=== PATIENT | male | born 1945 | race Hispanic/Latino ===

== ENCOUNTER 2017-06-03 16:36 | Inpatient (IN) | payer MEDICARE, BC ==
[2017-06-03 16:37] VITALS: BMI 26.4
--- NOTE | 2017-06-03 17:49 | C.PDOC ---
History Of Present Illness 72-year-old male presents to the ED for evaluation of right shoulder pain which began after he sustained a fall [employer]. Patient states he accidentally tripped over his foot and fell onto his right side. Patient notes he hit the right side of his head on the floor, but denies LOC. The fall was witnessed by his , who is present at bedside. Patient also denies symptoms prior to fall such as chest pain, palpitations, SOB, headache, dizziness, sensory changes, extremity weakness. Time Seen by Provider: 06/03/17 17:05 Chief Complaint (Nursing): Upper Extremity Problem/Injury History Per: Patient, Family History/Exam Limitations: no limitations Onset/Duration Of Symptoms: Hrs Current Symptoms Are (Timing): Better Quality: "Pain" Severity: Mild Additional History Per: Patient Past Medical History Reviewed: Historical Data, Nursing Documentation, Vital Signs Vital Signs: Last Vital Signs Temp 98.5 F 06/09/17 07:00 Pulse 76 06/09/17 07:00 Resp 18 06/09/17 07:00 BP 146/80 06/09/17 07:00 Pulse Ox 95 06/09/17 07:00 - Medical History PMH: Alzheimer's Disease, Anemia, COPD, Dementia, Fractures (ribs) Surgical History: Appendectomy - [facility] Procedures INJECT/INFUSE NEC (04/24/14) Family History: States: No Known Family Hx - Social History Hx Alcohol Use: No Hx Substance Use: No Review Of Systems Except As Marked, All Systems Reviewed And Found Negative. Cardiovascular: Negative for: Chest Pain, Palpitations Respiratory: Negative for: Shortness of Breath Gastrointestinal: Negative for: Nausea, Vomiting, Abdominal Pain, Diarrhea Musculoskeletal: Positive for: Shoulder Pain (right ) Neurological: Positive for: Other (+head injury, no LOC ). Negative for: Weakness, Numbness, Confusion, Seizures, Dizziness Physical Exam - Physical Exam Appears: Well, Non-toxic, No Acute Distress Skin: Normal Color, Warm, Dry Head: Normacephalic, Other (erythematous mild wound/abrasion to right temporal area) Eye(s): bilateral: Normal Inspection Oral Mucosa: Moist Neck: Normal, Normal ROM, No Midline Cervical Tenderness, No Paracervical Tenderness, No Step Off Deformity, Supple Cardiovascular: Rhythm Regular Respiratory: Normal Breath Sounds, No Rales, No Rhonchi, No Wheezing Gastrointestinal/Abdominal: Normal Exam, Bowel Sounds, Soft, No Tenderness, No Guarding, No Rebound Extremity: Normal ROM, Capillary Refill (< 2sec all digits ), No Deformity, Swelling (moderate swelling at right proximal humerus, (+) diffuse TTP) Extremity: Bilateral: Normal Color And Temperature Pulses: Left Radial: Normal, Right Radial: Normal Neurological/Psych: Oriented x3, Normal Speech, Normal Cognition, Normal Cranial Nerves, No Cerebellar Signs, Normal Motor, Normal Sensation Gait: Steady ED Course And Treatment - Laboratory Results Result Diagrams: 06/07/17 07:58 06/07/17 07:58 ECG: Interpreted By Me, Viewed By Me (sinus rhtyhm 83 bpm, 1st degree AV block, normal axis, no acute ST/T wave changes) ECG Interpretation: Abnormal O2 Sat by Pulse Oximetry: 96 (on RA) Pulse Ox Interpretation: Normal - Other Rad RIGHT SHOULDER XRAY X-Ray: Interpreted by Me, Viewed By Me (proximal humerus fx at surgical neck, no dislocation) - CT Scan/US CT HEAD Other Rad Studies (CT/US): Read By Radiologist, Radiology Report Reviewed CT/US Interpretation: Accession No. : [id number]. Patient Name / ID : ALEX Ramon / [id number]. Exam Date : 06/03/2017 17:41:07 ( Approved ). Study Comment : Sex / Age : M / 72Y. Creator : Kate Ruiz. Dictator : Leslie Saldivar MD. Medical Front Desk Coordinator : Card Table Attendant : Leslie Saldivar MD. Approver2 : Report Date : 06/03/2017 17:48:58. My Comment : . PROCEDURE: CT HEAD WITHOUT CONTRAST. HISTORY: head injury r/o bleed. COMPARISON: None available. TECHNIQUE: Axial computed tomography images were obtained through the head/brain without intravenous contrast. Radiation dose: Total exam DLP = 992.81 mGy-cm. This CT exam was performed using one or more of the following dose reduction techniques: Automated exposure control, adjustment of the mA and/or kV according to patient size, and/or use of iterative reconstruction technique. FINDINGS: HEMORRHAGE: No intracranial hemorrhage. BRAIN: Diffuse atrophy with prominence of the ventricles and sulci noted. No mass effect or edema. Patchy hypodense region in the left temporal lobe may reflect ischemic change. Scattered periventricular and subcortical white matter hypodensities, which are nonspecific, but often seen with chronic microvascular ischemic disease. VENTRICLES: No hydrocephalus. CALVARIUM: Unremarkable. PARANASAL SINUSES: Unremarkable as visualized. No significant inflammatory changes. MASTOID AIR CELLS: Unremarkable as visualized. No inflammatory changes. OTHER FINDINGS: None. IMPRESSION: Generalized atrophy. Patchy hypodense region in the left temporal lobe may reflect ischemic change. Scattered periventricular and subcortical white matter hypodensities, which are nonspecific, but often seen with chronic microvascular ischemic disease. Please note that MRI with diffusion imaging is more sensitive in the detection of acute ischemic event. Progress Note: Xray of right shoulder and CT head ordered and reviewed. Patient given PO Tylenol. As per , patient has h/o Lewy body dementia that is worsening by IV narcotics such as morphine. PO tylenol #3 given instead for pain, is comfortable with that plan. requests ortho consult Dr. Koch. - Physician Consult Information Physician Contacted: Dexter Carter Outcome Of Conversation: Discussed patient with Dr. Lurdes Carter, agrees with admission to his service with Dr. Koch for orthopedics. Disposition - Disposition Disposition: HOSPITALIZED Disposition Time: 18:50 Condition: STABLE - Clinical Impression Clinical Impression: Closed fracture of right proximal humerus - Scribe Statement The provider has reviewed the documentation as recorded by the Scribe (Dorie Carter) Provider Attestation: All medical record entries made by the Scribe were at my direction and personally dictated by me. I have reviewed the chart and agree that the record accurately reflects my personal performance of the history, physical exam, medical decision making, and the department course for this patient. I have also personally directed, reviewed, and agree with the discharge instructions and disposition.
--- NOTE | 2017-06-03 18:05 | CT ---
PROCEDURE: CT HEAD WITHOUT CONTRAST. HISTORY: head injury r/o bleed COMPARISON: None available. TECHNIQUE: Axial computed tomography images were obtained through the head/brain without intravenous contrast. Radiation dose: Total exam DLP = 992.81 mGy-cm. This CT exam was performed using one or more of the following dose reduction techniques: Automated exposure control, adjustment of the mA and/or kV according to patient size, and/or use of iterative reconstruction technique. FINDINGS: HEMORRHAGE: No intracranial hemorrhage. BRAIN: Diffuse atrophy with prominence of the ventricles and sulci noted. No mass effect or edema. Patchy hypodense region in the left temporal lobe may reflect ischemic change. Scattered periventricular and subcortical white matter hypodensities, which are nonspecific, but often seen with chronic microvascular ischemic disease. VENTRICLES: No hydrocephalus. CALVARIUM: Unremarkable. PARANASAL SINUSES: Unremarkable as visualized. No significant inflammatory changes. MASTOID AIR CELLS: Unremarkable as visualized. No inflammatory changes. OTHER FINDINGS: None. IMPRESSION: Generalized atrophy. Patchy hypodense region in the left temporal lobe may reflect ischemic change. Scattered periventricular and subcortical white matter hypodensities, which are nonspecific, but often seen with chronic microvascular ischemic disease. Please note that MRI with diffusion imaging is more sensitive in the detection of acute ischemic event.
[2017-06-03] MEDS ORDERED: Acetaminophen-Codeine 300/30 mg Tab PO STA (18:51)
[2017-06-03] MEDS ORDERED: Acetaminophen-Codeine 300/30 mg Tab PO ONE (19:03)
[2017-06-03 19:49] LABS: BASO % 0.3 % (0.0-2.0); EOS % 0.4 % (0.0-4.0); HEMOGLOBIN 13.9 g/dL (12.0-18.0); LYMPH # 0.9 K/uL (1.0-4.3); LYMPH % 10.2 % (20.0-40.0); MEAN CELL VOLUME 91.1 fL (80.0-94.0); MEAN CORPUSCULAR HEMOGLOBIN 31.9 pg (27.0-31.0); MEAN PLATELET VOLUME 9.6 fL (7.2-11.7); MONO # 0.8 K/uL (0.0-0.8); MONO % 8.4 % (0.0-10.0); NEUT # 7.4 K/uL (1.8-7.0); NEUT % 80.7 % (50.0-75.0); RBC 4.36 Mil/uL (4.40-5.90); RED CELL DISTRIBUTION WIDTH 12.4 % (11.5-14.5); WHITE BLOOD COUNT 9.2 K/uL (4.8-10.8)
[2017-06-03 19:58] LABS: INR 1.1
[2017-06-03 20:04] LABS: ALB/GLOB RATIO 1.3 (1.0-2.1); ALBUMIN 3.9 g/dL (3.5-5.0); ALT/SGPT 28 U/L (21-72); AST/SGOT 36 U/L (17-59); BLOOD UREA NITROGEN 25 mg/dL (9-20); CALCIUM 8.8 mg/dl (8.6-10.4); GFR AFRICAN-AMERICAN > 60; GFR NON-AFRICAN AMERICAN > 60
--- NOTE | 2017-06-03 22:35 | CP.PCM.HP ---
Present on Admission - Present on Admission Any Indicators Present on Admission: No Past Patient History - Infectious Disease Hx of Infectious Diseases: None - Tetanus Immunizations Tetanus Immunization: Unknown - Past Medical History & Family History Past Medical History?: Yes - Past Social History Smoking Status: Former Smoker - CARDIAC Hx Hypotension: Yes (orthostatic) - PULMONARY Hx Chronic Obstructive Pulmonary Disease (COPD): Yes - NEUROLOGICAL Hx Alzheimer's Disease: Yes Hx Dementia: Yes - HEENT Hx Cataracts: Yes - RENAL Hx Chronic Kidney Disease: No - ENDOCRINE/METABOLIC Hx Endocrine Disorders: No - HEMATOLOGICAL/ONCOLOGICAL Hx Anemia: Yes - INTEGUMENTARY Hx Dermatological Problems: No - MUSCULOSKELETAL/RHEUMATOLOGICAL Hx Fractures: Yes (ribs) - GASTROINTESTINAL Hx Gastrointestinal Disorders: No - GENITOURINARY/GYNECOLOGICAL Hx Prostate Problems: Yes Hx Urinary Tract Infection: Yes Other/Comment: frequent urine infections - PSYCHIATRIC Hx Substance Use: No - SURGICAL HISTORY Hx Appendectomy: Yes - ANESTHESIA Hx Anesthesia: Yes Hx Anesthesia Reactions: No Meds Allergies/Adverse Reactions: Allergies Allergy/AdvReac Type Severity Reaction Status Date / Time morphine Allergy ANAPHYLAXIS Verified 06/03/17 16:58 Results - Vital Signs Recent Vital Signs: Last Vital Signs Temp 98.3 F 06/03/17 16:53 Pulse 83 06/03/17 17:09 Resp 18 06/03/17 17:09 BP 200/95 H 06/03/17 17:09 Pulse Ox 96 06/03/17 19:13 - Labs Result Diagrams: 06/03/17 19:46 06/03/17 19:46 Labs: Laboratory Results - last 24 hr 06/03/17 06/03/17 06/03/17 19:46 19:46 19:46 WBC 9.2 RBC 4.36 L Hgb 13.9 Hct 39.7 MCV 91.1 MCH 31.9 H MCHC 35.0 RDW 12.4 Plt Count 161 MPV 9.6 Neut % (Auto) 80.7 H Lymph % (Auto) 10.2 L [place] % (Auto) 8.4 Eos % (Auto) 0.4 Baso % (Auto) 0.3 Neut # (Auto) 7.4 H Lymph # (Auto) 0.9 L [place] # (Auto) 0.8 Eos # (Auto) 0.0 Baso # (Auto) 0.0 PT 12.0 INR 1.1 APTT 34 Sodium 142 Potassium 4.3 Chloride 103 Carbon Dioxide 30 Anion Gap 13 BUN 25 H Creatinine 0.9 Est GFR ( Amer) > 60 Est GFR (Non-Af Amer) > 60 Random Glucose 145 H Calcium 8.8 Total Bilirubin 0.7 AST 36 ALT 28 Alkaline Phosphatase 53 Total Protein 6.9 Albumin 3.9 Globulin 3.0 Albumin/Globulin Ratio 1.3 Blood Type Antibody Screen 06/03/17 19:46 WBC RBC Hgb Hct MCV MCH MCHC RDW Plt Count MPV Neut % (Auto) Lymph % (Auto) [place] % (Auto) Eos % (Auto) Baso % (Auto) Neut # (Auto) Lymph # (Auto) [place] # (Auto) Eos # (Auto) Baso # (Auto) PT INR APTT Sodium Potassium Chloride Carbon Dioxide Anion Gap BUN Creatinine Est GFR ( Amer) Est GFR (Non-Af Amer) Random Glucose Calcium Total Bilirubin AST ALT Alkaline Phosphatase Total Protein Albumin Globulin Albumin/Globulin Ratio Blood Type A POSITIVE Antibody Screen Negative Assessment & Plan - Assessment and Plan (Free Text) Plan: orthofollwup nemaned protonix jayleen lvoenox scd other mx as ordered will monitor cbc closelyh may need rehab
--- NOTE | 2017-06-03 23:02 | CT ---
EXAM: CT Right Upper Extremity Without Intravenous Contrast, Shoulder CLINICAL HISTORY: 72 years old, male; Injury or trauma; Fall; Initial encounter; Fracture, traumatic injury; Closed fracture; Humerus; Right; Additional info: Rt shoulder pain TECHNIQUE: Axial computed tomography images of the right shoulder without intravenous contrast. All CT scans at this facility use one or more dose reduction techniques, viz.: automated exposure control; ma/kV adjustment per patient size (including targeted exams where dose is matched to indication; i.e. head); or iterative reconstruction technique. Coronal and sagittal reformatted images were created and reviewed. COMPARISON: No relevant prior studies available. FINDINGS: Bones/joints: Comminuted, displaced, impacted fracture surgical neck of humerus. Severe degenerative changes of glenohumeral joint. Mild degenerative changes of acromioclavicular joint. Degenerative changes of cervical spine. No dislocation. Glenohumeral joint effusion with few foci of air. Soft tissues: Soft tissue swelling/stranding about shoulder girdle. Lungs: Few pulmonary nodules, up to 0.5 cm. IMPRESSION: 1. Right proximal humerus fracture. 2. Pulmonary nodules. For low-risk patients, no follow-up is necessary. For high-risk patients (smoking history or other known risk factors) an optional CT at 12 months could be performed. 3. Incidental/non-acute findings are described above.
--- NOTE | 2017-06-04 07:03 | RAD ---
PROCEDURE: Radiographs of the Right Shoulder HISTORY: s/p fall r/o fx COMPARISON: No prior. FINDINGS: BONES: There is a transverse, impacted fracture through the surgical neck of the proximal right humerus without dislocation. Fracture appears impacted without malalignment. Prominent acromioclavicular and glenohumeral joint degenerative changes are appreciated. JOINTS: As above. SOFT TISSUES: Normal. OTHER FINDINGS: None. IMPRESSION: Proximal right humeral fracture without dislocation. Mild impaction noted at fracture site.
--- NOTE | 2017-06-04 07:13 | RAD ---
PROCEDURE: CHEST RADIOGRAPH, 1 VIEW HISTORY: admission COMPARISON: None available. FINDINGS: LUNGS: Clear. PLEURA: No pneumothorax or pleural fluid seen. CARDIOVASCULAR: Normal. OSSEOUS STRUCTURES: No significant abnormalities. VISUALIZED UPPER ABDOMEN: Normal. OTHER FINDINGS: None. IMPRESSION: No acute cardiopulmonary disease appreciated.
[2017-06-04] MEDS ORDERED: HYDROmorphone 0.5 mg/0.5 ml ISec IVP PRN (07:27)
--- NOTE | 2017-06-04 07:53 | CARD ---
APPROVED REPORT EKG Measurement Heart [id number] <Conclusion> Sinus rhythm with 1st degree AV block Otherwise normal ECG
[2017-06-04] MEDS ORDERED: HYDROmorphone 0.5 mg/0.5 ml ISec ONE (08:01)
--- NOTE | 2017-06-04 08:19 | CP.PCM.PN ---
Subjective - Date & Time of Evaluation Date of Evaluation: 06/04/17 Time of Evaluation: 08:16 - Subjective Subjective: Orthopedic eval Dr. Koch, full consultation to follow 72M complains of right shoulder pain after fall last night. At this time, patient is confused, and requires prompting but does follow commands. He denies any numbness or tingling. He denies pain in other extremities, denies headache, neck pain, or back pain. Objective - Vital Signs/Intake and Output Vital Signs (last 24 hours): Temp Pulse Resp BP Pulse Ox 98.7 F 100 H 19 151/86 H 95 06/04/17 05:54 06/04/17 07:55 06/04/17 07:55 06/04/17 07:55 06/04/17 07:55 - Medications Medications: Current Medications Citalopram Hydrobromide (Celexa) 1 mg PO DAILY [facility] Donepezil HCl (Aricept) 1 mg PO DAILY [facility] Finasteride (Proscar) 5 mg PO DAILY [facility] Fludrocortisone Acetate (Florinef) 1 mg PO DAILY [facility] Home Med (Midodrine [Proamatine]) 1 tab PO TID [facility] Home Med (Mirabegron [Myrbetriq]) 50 mg PO DAILY [facility] Home Med (Pyridostigmine [Mestinon]) 1 tab PO TID [facility] Home Med (Solifenacin Succinate [Vesicare]) 1 tab PO DAILY [facility] Hydromorphone HCl (Dilaudid) 0.5 mg IVP Q8H PRN PRN Reason: Pain, moderate (4-7) Last Admin: 06/04/17 08:00 Dose: 0.5 mg Memantine (Namenda) 10 mg PO BID [facility] Pantoprazole Sodium (Protonix Ec Tab) 40 mg PO DAILY [facility] - Labs Labs: 06/03/17 19:46 06/03/17 19:46 PT 12.0 SECONDS (9.7-12.2) 06/03/17 19:46 INR 1.1 06/03/17 19:46 APTT 34 SECONDS (21-34) 06/03/17 19:46 - Constitutional Appears: Well, No Acute Distress - Neck Exam Neck Exam: Full ROM, Normal Inspection - Extremities Exam Additional comments: Right shoulder: noted swelling to right shoulder, skin intact, TTP to shoulder, +radial pulse, sensation intact to RUE, +ROM fingers, +thumb ext, finger add/abd , extension, flexion No swelling or tenderness to right elbow/forearm/wrist BLE/LUE +radial pulse, no swelling/deformity discoloration - Neurological Exam Neurological Exam: Alert, Awake - Skin Skin Exam: Dry, Normal Color, Warm (swelling) Assessment and Plan (1) Closed fracture of right proximal humerus Assessment & Plan: Imaging reviewed by Dr. Koch fracture is non operative, continue sling, ice, pain medication diet ordered d/w Dr. Koch, agrees with above Status: Acute Results - Vital Signs Recent Vital Signs: Last Vital Signs Temp 98.7 F 06/04/17 05:54 Pulse 100 H 06/04/17 07:55 Resp 19 06/04/17 07:55 BP 151/86 H 06/04/17 07:55 Pulse Ox 95 06/04/17 07:55 - Labs Result Diagrams: 06/03/17 19:46 06/03/17 19:46 Labs: Laboratory Results - last 24 hr 06/03/17 06/03/17 06/03/17 19:46 19:46 19:46 WBC 9.2 RBC 4.36 L Hgb 13.9 Hct 39.7 MCV 91.1 MCH 31.9 H MCHC 35.0 RDW 12.4 Plt Count 161 MPV 9.6 Neut % (Auto) 80.7 H Lymph % (Auto) 10.2 L [place] % (Auto) 8.4 Eos % (Auto) 0.4 Baso % (Auto) 0.3 Neut # (Auto) 7.4 H Lymph # (Auto) 0.9 L [place] # (Auto) 0.8 Eos # (Auto) 0.0 Baso # (Auto) 0.0 PT 12.0 INR 1.1 APTT 34 Sodium 142 Potassium 4.3 Chloride 103 Carbon Dioxide 30 Anion Gap 13 BUN 25 H Creatinine 0.9 Est GFR ( Amer) > 60 Est GFR (Non-Af Amer) > 60 Random Glucose 145 H Calcium 8.8 Total Bilirubin 0.7 AST 36 ALT 28 Alkaline Phosphatase 53 Total Protein 6.9 Albumin 3.9 Globulin 3.0 Albumin/Globulin Ratio 1.3 Blood Type Antibody Screen 06/03/17 19:46 WBC RBC Hgb Hct MCV MCH MCHC RDW Plt Count MPV Neut % (Auto) Lymph % (Auto) [place] % (Auto) Eos % (Auto) Baso % (Auto) Neut # (Auto) Lymph # (Auto) [place] # (Auto) Eos # (Auto) Baso # (Auto) PT INR APTT Sodium Potassium Chloride Carbon Dioxide Anion Gap BUN Creatinine Est GFR ( Amer) Est GFR (Non-Af Amer) Random Glucose Calcium Total Bilirubin AST ALT Alkaline Phosphatase Total Protein Albumin Globulin Albumin/Globulin Ratio Blood Type A POSITIVE Antibody Screen Negative - Impressions Impression: Patient Name / ID : ALEX KWOK / [id number] Exam Date : 06/03/2017 22:31:04 ( Approved ) Study Comment : Sex / Age : M / 72Y Creator : Miguel Costello MD Dictator : Sleeve Setter Safety Stitch : Timber Appraiser : Miguel Costello MD Approver2 : Report Date : 06/03/2017 23:01:00 My Comment : [facility] Division of Radiology [address] [place] [address] Tel. no. Patient Name: RISSA JOHNSON JR Pt. Address: [address] [place] [address] Rec #: [id number] [place] [address]: Raul CHARLES, Daisy Lund Pt [place] [facility] [place] 1945 [place] Age: 72 Order #: [id number] Reason for exam: rt shoulder pain CT Scan EXT UPPER W/O CONTRAST RIGHT Exam Date: 06/03/17 This imaging exam was performed at [facility] EXAM: CT Right Upper Extremity Without Intravenous Contrast, Shoulder CLINICAL HISTORY: 72 years old, male; Injury or trauma; Fall; Initial encounter; Fracture, traumatic injury; Closed fracture; Humerus; Right; Additional info: Rt shoulder pain TECHNIQUE: Axial computed tomography images of the right shoulder without intravenous contrast. All CT scans at this facility use one or more dose reduction techniques, viz.: automated exposure control; ma/kV adjustment per patient size (including targeted exams where dose is matched to indication; i.e. head); or iterative reconstruction technique. Coronal and sagittal reformatted images were created and reviewed. COMPARISON: No relevant prior studies available. FINDINGS: Bones/joints: Comminuted, displaced, impacted fracture surgical neck of humerus. Severe degenerative changes of glenohumeral joint. Mild degenerative changes of acromioclavicular joint. Degenerative changes of cervical spine. No dislocation. Glenohumeral joint effusion with few foci of air. Soft tissues: Soft tissue swelling/stranding about shoulder girdle. Lungs: Few pulmonary nodules, up to 0.5 cm. IMPRESSION: 1. Right proximal humerus fracture. 2. Pulmonary nodules. For low-risk patients, no follow-up is necessary. For high-risk patients (smoking history or other known risk factors) an optional CT at 12 months could be performed. 3. Incidental/non-acute findings are described above. Dictated By: Miguel Costello MD Dictated Date/Time: 06/03/172300 Signed By: Miguel Costello MD Date Signed: 2300 Transcribed By: [facility] Transcribe Date/Time : 06/03/172300 [id number] Defer mgmt of nodules to medical team
[2017-06-04] MEDS ORDERED: Enoxaparin 40 mg Syringe ONE (09:40)
[2017-06-04] MEDS: Enoxaparin 40 mg Syringe SC SCH (09:43)
[2017-06-04] MEDS ORDERED: SOLIFENACIN SUCCINATE PO SCH (10:00)
[2017-06-04] MEDS: Pantoprazole 40 mg EC Tab PO SCH (10:33)
[2017-06-04] MEDS: MIDODRINE PO SCH ×2 (11:58→14:54)
[2017-06-04] MEDS: Home Med 1 UNIT (Mirabegron [Myrbetriq] 50 MG) PO SCH ×2 (11:59→14:54)
[2017-06-04] MEDS: PYRIDOSTIGMINE PO SCH ×2 (11:59→14:55)
[2017-06-04 12:25] LABS: URINE BILIRUBIN NEGATIVE (NEGATIVE); URINE BLOOD NEGATIVE (NEGATIVE); URINE CLARITY Clear (Clear); URINE COLOR Yellow (YELLOW); URINE GLUCOSE (UA) NORMAL (Normal); URINE LEUKOCYTE ESTERASE NEG Leu/uL (Negative); URINE PROTEIN NEGATIVE (NEGATIVE)
--- NOTE | 2017-06-04 17:51 | CP.PCM.PN ---
Subjective - Date & Time of Evaluation Date of Evaluation: 06/04/17 Time of Evaluation: 16:20 - Subjective Subjective: clinically same Objective - Vital Signs/Intake and Output Vital Signs (last 24 hours): Temp Pulse Resp BP Pulse Ox 99.9 F H 87 18 143/94 H 95 06/04/17 17:03 06/04/17 17:03 06/04/17 17:03 06/04/17 17:03 06/04/17 17:03 - Medications Medications: Current Medications Citalopram Hydrobromide (Celexa) 10 mg PO DAILY [facility] Last Admin: 06/04/17 10:38 Dose: 10 mg Donepezil HCl (Aricept) 10 mg PO [facility] Enoxaparin Sodium (Lovenox) 40 mg SC DAILY [facility] Last Admin: 06/04/17 09:43 Dose: 40 mg Finasteride (Proscar) 5 mg PO DAILY [facility] Last Admin: 06/04/17 10:33 Dose: 5 mg Fludrocortisone Acetate (Florinef) 0.1 mg PO DAILY [facility] Last Admin: 06/04/17 10:38 Dose: 0.1 mg Home Med (Solifenacin Succinate [Vesicare]) 1 tab PO DAILY [facility] Home Med (Pyridostigmine [Mestinon]) 1 tab PO TID [facility] Home Med (Mirabegron [Myrbetriq]) 50 mg PO DAILY [facility] Home Med (Midodrine [Proamatine]) 1 tab PO TID [facility] Hydromorphone HCl (Dilaudid) 0.5 mg IVP Q8H PRN PRN Reason: Pain, moderate (4-7) Last Admin: 06/04/17 08:00 Dose: 0.5 mg Memantine (Namenda) 10 mg PO BID [facility] Last Admin: 06/04/17 10:33 Dose: 10 mg Pantoprazole Sodium (Protonix Ec Tab) 40 mg PO DAILY [facility] Last Admin: 06/04/17 10:33 Dose: 40 mg - Labs Labs: 06/03/17 19:46 06/03/17 19:46 PT 12.0 SECONDS (9.7-12.2) 06/03/17 19:46 INR 1.1 06/03/17 19:46 APTT 34 SECONDS (21-34) 06/03/17 19:46
--- NOTE | 2017-06-05 01:40 | CON ---
DATE: The patient was admitted by Dr. Alejo Carter with diagnosis of right humeral fracture. Examination revealed an elderly male, who is somewhat disoriented, complaining of pain in the right shoulder. 2+ swelling of the shoulder noted. Range of motion of the shoulder is painful. No crepitus noted. Tenderness over the anterior and posterior aspects of the shoulder noted. X-rays revealed a fracture of the proximal humerus. CAT scan reveals a fracture of the proximal humerus with no intraarticular component. DIAGNOSES: 1. Fracture of the right humerus proximal, surgical neck, and treatment at this point is non-operative. CAT scan did not show any head-splitting component. The patient will be placed in a shoulder immobilizer. 2. Ice for the shoulder. We will start the patient on physical therapy including gradual mobilization with range of motion exercises. I also discussed with patient's regarding the treatment plan. We will follow the patient. Oscar Koch MD
--- NOTE | 2017-06-05 09:27 | CP.PCM.PN ---
Subjective - Date & Time of Evaluation Date of Evaluation: 06/05/17 Time of Evaluation: 07:45 - Subjective Subjective: Patient confused. Follows commands with prompting. Review of Systems - Review of Systems Systems not reviewed;Unavailable: Dementia Objective - Vital Signs/Intake and Output Vital Signs (last 24 hours): Temp Pulse Resp BP Pulse Ox 99.3 F 88 20 159/86 H 95 06/05/17 00:00 06/05/17 05:00 06/05/17 05:00 06/05/17 05:00 06/05/17 05:00 Intake and Output: 06/05/17 06/05/17 06:59 18:59 Output Total 175 Balance -175 - Medications Medications: Current Medications Citalopram Hydrobromide (Celexa) 10 mg PO DAILY [facility] Last Admin: 06/04/17 10:38 Dose: 10 mg Donepezil HCl (Aricept) 10 mg PO [facility] Enoxaparin Sodium (Lovenox) 40 mg SC DAILY [facility] Last Admin: 06/04/17 09:43 Dose: 40 mg Finasteride (Proscar) 5 mg PO DAILY [facility] Last Admin: 06/04/17 10:33 Dose: 5 mg Fludrocortisone Acetate (Florinef) 0.1 mg PO DAILY [facility] Last Admin: 06/04/17 10:38 Dose: 0.1 mg Home Med (Solifenacin Succinate [Vesicare]) 1 tab PO DAILY [facility] Home Med (Pyridostigmine [Mestinon]) 1 tab PO TID [facility] Home Med (Mirabegron [Myrbetriq]) 50 mg PO DAILY [facility] Home Med (Midodrine [Proamatine]) 1 tab PO TID [facility] Hydromorphone HCl (Dilaudid) 0.5 mg IVP Q8H PRN PRN Reason: Pain, moderate (4-7) Last Admin: 06/04/17 08:00 Dose: 0.5 mg Memantine (Namenda) 10 mg PO BID [facility] Last Admin: 06/04/17 22:01 Dose: 10 mg Pantoprazole Sodium (Protonix Ec Tab) 40 mg PO DAILY [facility] Last Admin: 06/04/17 10:33 Dose: 40 mg - Labs Labs: 06/03/17 19:46 06/03/17 19:46 PT 12.0 SECONDS (9.7-12.2) 06/03/17 19:46 INR 1.1 06/03/17 19:46 APTT 34 SECONDS (21-34) 06/03/17 19:46 - Constitutional Appears: Well, No Acute Distress - Head Exam Head Exam: ATRAUMATIC - Respiratory Exam Respiratory Exam: NORMAL BREATHING PATTERN - Extremities Exam Additional comments: RUE: shoulder swollen sensation intact to rad/med/ulnar/ax nerve - Neurological Exam Neurological Exam: Alert, Awake Neuro motor strength exam: Right Lower Extremity: 5 (+ROM fingers/wrist flex/ ext sensation intact, thumb ext) - Psychiatric Exam Additional comments: calm - Skin Skin Exam: Dry, Intact, Normal Color, Warm Assessment and Plan (1) Closed fracture of right proximal humerus Assessment & Plan: conservative mgmt shoulder immobilizer at all times ice to right shoulder pain meds prn PT/OT, NWB RUE orthopedically stable for d/c, f/u in office in 2 weeks call for appointment d/w Dr. Koch, agrees with above Status: Acute
[2017-06-05] MEDS: PYRIDOSTIGMINE 60 MG TAB PO SCH ×3 (10:57→17:31)
[2017-06-05] MEDS: VESICARE 5 MG PO SCH (10:58)
[2017-06-05] MEDS: MYRBETRIQ 50 MG TAB PO SCH (10:58)
[2017-06-05] MEDS: Pantoprazole 40 mg EC Tab PO SCH (10:59)
[2017-06-05] MEDS: Enoxaparin 40 mg Syringe SC SCH (11:00)
[2017-06-05] MEDS: MIDODRINE 5 MG PO SCH ×2 (11:02→17:31)
--- NOTE | 2017-06-05 15:53 | CP.PCM.PN ---
Subjective - Date & Time of Evaluation Date of Evaluation: 06/05/17 Time of Evaluation: 11:40 - Subjective Subjective: clinically same Objective - Vital Signs/Intake and Output Vital Signs (last 24 hours): Temp Pulse Resp BP Pulse Ox 98.0 F 80 20 142/84 96 06/05/17 15:00 06/05/17 15:00 06/05/17 15:00 06/05/17 15:00 06/05/17 15:00 Intake and Output: 06/05/17 06/05/17 06:59 18:59 Output Total 175 Balance -175 - Medications Medications: Current Medications Acetaminophen (Tylenol 325mg Tab) 650 mg PO Q6 PRN PRN Reason: Pain, moderate (4-7) Citalopram Hydrobromide (Celexa) 10 mg PO DAILY [facility] Last Admin: 06/05/17 11:04 Dose: 10 mg Donepezil HCl (Aricept) 10 mg PO [facility] Enoxaparin Sodium (Lovenox) 40 mg SC DAILY [facility] Last Admin: 06/05/17 11:00 Dose: 40 mg Finasteride (Proscar) 5 mg PO DAILY [facility] Last Admin: 06/04/17 10:33 Dose: 5 mg Fludrocortisone Acetate (Florinef) 0.1 mg PO DAILY [facility] Last Admin: 06/04/17 10:38 Dose: 0.1 mg Home Med (Patient's Own Medication) 1 tab PO DAILY [facility] Last Admin: 06/05/17 10:58 Dose: 1 tab Home Med (Patient's Own Medication) 1 tab PO TID [facility] Last Admin: 06/05/17 10:57 Dose: 1 tab Home Med (Patient's Own Medication) 1 tab PO DAILY [facility] Last Admin: 06/05/17 10:58 Dose: 1 tab Home Med (Patient's Own Medication) 1 tab PO 0800,1200,1700 [facility] Last Admin: 06/05/17 11:02 Dose: 1 tab Memantine (Namenda) 10 mg PO BID [facility] Last Admin: 06/05/17 10:59 Dose: 10 mg Pantoprazole Sodium (Protonix Ec Tab) 40 mg PO DAILY [facility] Last Admin: 06/05/17 10:59 Dose: 40 mg - Labs Labs: 06/03/17 19:46 06/03/17 19:46 PT 12.0 SECONDS (9.7-12.2) 06/03/17 19:46 INR 1.1 06/03/17 19:46 APTT 34 SECONDS (21-34) 06/03/17 19:46 - Constitutional Appears: Well - Head Exam Head Exam: ATRAUMATIC, NORMAL INSPECTION, NORMOCEPHALIC - Eye Exam Eye Exam: EOMI, Normal appearance, PERRL Pupil Exam: NORMAL ACCOMODATION, PERRL - ENT Exam ENT Exam: Mucous Membranes Moist, Normal Exam - Neck Exam Neck Exam: Full ROM, Normal Inspection. absent: Lymphadenopathy - Respiratory Exam Respiratory Exam: Decreased Breath Sounds - Cardiovascular Exam Cardiovascular Exam: REGULAR RHYTHM, +S1 - GI/Abdominal Exam GI & Abdominal Exam: Soft, Diminished Bowel Sounds - Rectal Exam Rectal Exam: Deferred
[2017-06-06] MEDS: MIDODRINE 5 MG PO SCH ×3 (08:26→17:31)
--- NOTE | 2017-06-06 08:56 | CP.PCM.PN ---
Subjective - Date & Time of Evaluation Date of Evaluation: 06/06/17 Time of Evaluation: 08:00 - Subjective Subjective: Patient follows commands, confused doesn't answer questions appropriately. Review of Systems - Review of Systems Systems not reviewed;Unavailable: Dementia Objective - Vital Signs/Intake and Output Vital Signs (last 24 hours): Temp Pulse Resp BP Pulse Ox 97.5 F L 82 20 153/75 H 94 L 06/05/17 23:20 06/05/17 23:20 06/05/17 23:20 06/05/17 23:20 06/05/17 23:20 Intake and Output: 06/06/17 06/06/17 06:59 18:59 Output Total 450 Balance -450 - Medications Medications: Current Medications Acetaminophen (Tylenol 325mg Tab) 650 mg PO Q6 PRN PRN Reason: Pain, moderate (4-7) Citalopram Hydrobromide (Celexa) 10 mg PO DAILY [facility] Last Admin: 06/05/17 11:04 Dose: 10 mg Donepezil HCl (Aricept) 10 mg PO HS [facility] Last Admin: 06/05/17 21:57 Dose: 10 mg Enoxaparin Sodium (Lovenox) 40 mg SC DAILY [facility] Last Admin: 06/05/17 11:00 Dose: 40 mg Finasteride (Proscar) 5 mg PO DAILY [facility] Last Admin: 06/05/17 16:39 Dose: Not Given Fludrocortisone Acetate (Florinef) 0.1 mg PO DAILY [facility] Last Admin: 06/05/17 16:38 Dose: Not Given Home Med (Patient's Own Medication) 1 tab PO DAILY [facility] Last Admin: 06/05/17 10:58 Dose: 1 tab Home Med (Patient's Own Medication) 1 tab PO TID [facility] Last Admin: 06/05/17 17:31 Dose: 1 tab Home Med (Patient's Own Medication) 1 tab PO DAILY [facility] Last Admin: 06/05/17 10:58 Dose: 1 tab Home Med (Patient's Own Medication) 1 tab PO 0800,1200,1700 [facility] Last Admin: 06/06/17 08:26 Dose: 1 tab Memantine (Namenda) 10 mg PO BID [facility] Last Admin: 06/05/17 17:30 Dose: 10 mg Pantoprazole Sodium (Protonix Ec Tab) 40 mg PO DAILY [facility] Last Admin: 06/05/17 10:59 Dose: 40 mg - Labs Labs: 06/03/17 19:46 06/03/17 19:46 PT 12.0 SECONDS (9.7-12.2) 06/03/17 19:46 INR 1.1 06/03/17 19:46 APTT 34 SECONDS (21-34) 06/03/17 19:46 - Constitutional Appears: Well, No Acute Distress - Head Exam Head Exam: ATRAUMATIC - Neck Exam Neck Exam: Normal Inspection - Respiratory Exam Respiratory Exam: NORMAL BREATHING PATTERN - Extremities Exam Additional comments: RUE: shoulder swollen sensation intact to rad/med/ulnar/ax nerve - Neurological Exam Neuro motor strength exam: Right Upper Extremity: 5 (5/5 can slider strength, 4/5 finger extension and wrist extension (requires prompting to follow commands)) - Skin Skin Exam: Dry, Intact, Normal Color, Warm Additional comments: +ecchymosis Assessment and Plan (1) Closed fracture of right proximal humerus Assessment & Plan: non operative continue shoulder immobilizer PT/OT ice pain meds prn f/u 2 weeks after discharge office Dr. Koch call for appt d/w Dr. Koch, agrees with above Status: Acute
[2017-06-06] MEDS: VESICARE 5 MG PO SCH (09:46)
[2017-06-06] MEDS: MYRBETRIQ 50 MG TAB PO SCH (09:46)
[2017-06-06] MEDS: PYRIDOSTIGMINE 60 MG TAB PO SCH ×3 (09:47→17:31)
[2017-06-06] MEDS: Pantoprazole 40 mg EC Tab PO SCH (09:48)
[2017-06-06] MEDS: Enoxaparin 40 mg Syringe SC SCH (09:54)
[2017-06-06 13:50] LABS: BASO % 0.6 % (0.0-2.0); EOS # 0.1 K/uL (0.0-0.7); EOS % 1.3 % (0.0-4.0); HEMOGLOBIN 13.1 g/dL (12.0-18.0); LYMPH # 1.1 K/uL (1.0-4.3); LYMPH % 15.8 % (20.0-40.0); MEAN CELL VOLUME 91.7 fL (80.0-94.0); MEAN CORPUSCULAR HEMOGLOBIN 32.1 pg (27.0-31.0); MEAN CORPUSCULAR HGB CONC 34.9 g/dL (33.0-37.0); MEAN PLATELET VOLUME 9.7 fL (7.2-11.7); MONO # 0.9 K/uL (0.0-0.8); MONO % 12.3 % (0.0-10.0); RBC 4.09 Mil/uL (4.40-5.90); RED CELL DISTRIBUTION WIDTH 12.2 % (11.5-14.5); WHITE BLOOD COUNT 7.2 K/uL (4.8-10.8)
[2017-06-06 14:03] LABS: ALB/GLOB RATIO 1.1 (1.0-2.1); ALBUMIN 3.4 g/dL (3.5-5.0); ALT/SGPT 27 U/L (21-72); AST/SGOT 21 U/L (17-59); BLOOD UREA NITROGEN 23 mg/dL (9-20); CALCIUM 8.7 mg/dl (8.6-10.4); GFR AFRICAN-AMERICAN > 60; GFR NON-AFRICAN AMERICAN > 60
--- NOTE | 2017-06-06 14:36 | CP.PCM.PN ---
Subjective - Date & Time of Evaluation Date of Evaluation: 06/06/17 Time of Evaluation: 14:35 - Subjective Subjective: PT SEEN BY [facility] THIS MORNING AND CLEARED FOR D/C. ALSO SEEN BY DR. Lurdes CAMP AND CLEARED FOR D/C TODAY. PT IS TO GO TO [facility] TODAY. TO F/U IN [address] JIMÉNEZ IN THE OFFICE. PONCHO [place] PA AWARE THAT PT WILL GO TO [facility]. -PLACE UNDER THE SERVICE OF DR. Lurdes HAIR [facility]---CALL DR. CAMP UPON ARRIVAL WITH BED ASSIGNMENT AND FOR ADMITTING ORDERS. -CONTINUE MEDICATIONS PER THE MED REC FORM. CHANGES CAN BE MADE BY DR. CAMP. -FALL PRECAUTIONS PER FACILITY PROTOCOL. -ORTHOPEDIC RECOMMENDATIONS: CONTINUE SHOULDER IMMOBILIZER; PT/OT TOLERATED; ICE TO AFFECTED AREA; PAIN MEDICATIONS NEEDED; FOLLOW UP WITH DR. JIMÉNEZ IN THE OFFICE IN 2 WEEKS (BY 06/20/17). -FOR FURTHER QUESTIONS OR ORDERS, CONTACT DR. Lurdes CAMP. Objective - Vital Signs/Intake and Output Vital Signs (last 24 hours): Temp Pulse Resp BP Pulse Ox 98.2 F 78 18 137/83 94 L 06/06/17 08:50 06/06/17 08:50 06/06/17 08:50 06/06/17 08:50 06/06/17 08:50 Intake and Output: 06/06/17 06/06/17 06:59 18:59 Output Total 450 300 Balance -450 -300 - Medications Medications: Current Medications Acetaminophen (Tylenol 325mg Tab) 650 mg PO Q6 PRN PRN Reason: Pain, moderate (4-7) Citalopram Hydrobromide (Celexa) 10 mg PO DAILY [facility] Last Admin: 06/06/17 09:48 Dose: 10 mg Donepezil HCl (Aricept) 10 mg PO HS [facility] Last Admin: 06/05/17 21:57 Dose: 10 mg Enoxaparin Sodium (Lovenox) 40 mg SC DAILY [facility] Last Admin: 06/06/17 09:54 Dose: 40 mg Finasteride (Proscar) 5 mg PO DAILY [facility] Last Admin: 06/06/17 09:50 Dose: 5 mg Fludrocortisone Acetate (Florinef) 0.1 mg PO DAILY [facility] Last Admin: 06/06/17 09:48 Dose: 0.1 mg Home Med (Patient's Own Medication) 1 tab PO DAILY [facility] Last Admin: 06/06/17 09:46 Dose: 1 tab Home Med (Patient's Own Medication) 1 tab PO TID [facility] Last Admin: 06/06/17 13:24 Dose: 1 tab Home Med (Patient's Own Medication) 1 tab PO DAILY [facility] Last Admin: 06/06/17 09:46 Dose: 1 tab Home Med (Patient's Own Medication) 1 tab PO 0800,1200,1700 [facility] Last Admin: 06/06/17 13:25 Dose: 1 tab Memantine (Namenda) 10 mg PO BID [facility] Last Admin: 06/06/17 09:48 Dose: 10 mg Pantoprazole Sodium (Protonix Ec Tab) 40 mg PO DAILY [facility] Last Admin: 06/06/17 09:48 Dose: 40 mg - Labs Labs: 06/06/17 13:45 06/06/17 13:45 PT 12.0 SECONDS (9.7-12.2) 06/03/17 19:46 INR 1.1 06/03/17 19:46 APTT 34 SECONDS (21-34) 06/03/17 19:46
--- NOTE | 2017-06-06 17:49 | CP.PCM.PN ---
Subjective - Date & Time of Evaluation Date of Evaluation: 06/06/17 Time of Evaluation: 11:20 - Subjective Subjective: clinically same Objective - Vital Signs/Intake and Output Vital Signs (last 24 hours): Temp Pulse Resp BP Pulse Ox 98.6 F 77 20 157/90 H 96 06/06/17 16:40 06/06/17 16:40 06/06/17 16:40 06/06/17 16:40 06/06/17 16:40 Intake and Output: 06/06/17 06/06/17 06:59 18:59 Output Total 450 300 Balance -450 -300 - Medications Medications: Current Medications Acetaminophen (Tylenol 325mg Tab) 650 mg PO Q6 PRN PRN Reason: Pain, moderate (4-7) Citalopram Hydrobromide (Celexa) 10 mg PO DAILY [facility] Last Admin: 06/06/17 09:48 Dose: 10 mg Donepezil HCl (Aricept) 10 mg PO HS [facility] Last Admin: 06/05/17 21:57 Dose: 10 mg Enoxaparin Sodium (Lovenox) 40 mg SC DAILY [facility] Last Admin: 06/06/17 09:54 Dose: 40 mg Finasteride (Proscar) 5 mg PO DAILY [facility] Last Admin: 06/06/17 09:50 Dose: 5 mg Fludrocortisone Acetate (Florinef) 0.1 mg PO DAILY [facility] Last Admin: 06/06/17 09:48 Dose: 0.1 mg Home Med (Patient's Own Medication) 1 tab PO DAILY [facility] Last Admin: 06/06/17 09:46 Dose: 1 tab Home Med (Patient's Own Medication) 1 tab PO TID [facility] Last Admin: 06/06/17 17:31 Dose: 1 tab Home Med (Patient's Own Medication) 1 tab PO DAILY [facility] Last Admin: 06/06/17 09:46 Dose: 1 tab Home Med (Patient's Own Medication) 1 tab PO 0800,1200,1700 [facility] Last Admin: 06/06/17 17:31 Dose: 1 tab Memantine (Namenda) 10 mg PO BID [facility] Last Admin: 06/06/17 17:30 Dose: 10 mg Pantoprazole Sodium (Protonix Ec Tab) 40 mg PO DAILY [facility] Last Admin: 06/06/17 09:48 Dose: 40 mg - Labs Labs: 06/06/17 13:45 06/06/17 13:45 PT 12.0 SECONDS (9.7-12.2) 06/03/17 19:46 INR 1.1 06/03/17 19:46 APTT 34 SECONDS (21-34) 06/03/17 19:46 - Constitutional Appears: Well - Head Exam Head Exam: ATRAUMATIC, NORMAL INSPECTION, NORMOCEPHALIC - Eye Exam Eye Exam: EOMI, Normal appearance, PERRL Pupil Exam: NORMAL ACCOMODATION, PERRL - ENT Exam ENT Exam: Mucous Membranes Moist, Normal Exam - Neck Exam Neck Exam: Full ROM, Normal Inspection. absent: Lymphadenopathy - Respiratory Exam Respiratory Exam: Decreased Breath Sounds - Cardiovascular Exam Cardiovascular Exam: REGULAR RHYTHM, +S1, +S2 - GI/Abdominal Exam GI & Abdominal Exam: Soft, Diminished Bowel Sounds - Rectal Exam Rectal Exam: Deferred
[2017-06-07 08:06] LABS: BASO % 0.6 % (0.0-2.0); EOS # 0.1 K/uL (0.0-0.7); EOS % 2.3 % (0.0-4.0); HEMOGLOBIN 12.7 g/dL (12.0-18.0); LYMPH # 0.9 K/uL (1.0-4.3); LYMPH % 15.2 % (20.0-40.0); MEAN CELL VOLUME 90.5 fL (80.0-94.0); MEAN CORPUSCULAR HGB CONC 35.4 g/dL (33.0-37.0); MEAN PLATELET VOLUME 9.6 fL (7.2-11.7); MONO # 0.7 K/uL (0.0-0.8); MONO % 12.4 % (0.0-10.0); NEUT % 69.5 % (50.0-75.0); RBC 3.96 Mil/uL (4.40-5.90); RED CELL DISTRIBUTION WIDTH 12.2 % (11.5-14.5); WHITE BLOOD COUNT 5.7 K/uL (4.8-10.8)
[2017-06-07] MEDS: MIDODRINE 5 MG PO SCH ×3 (08:16→17:30)
[2017-06-07 08:26] LABS: ALB/GLOB RATIO 1.2 (1.0-2.1); ALBUMIN 3.4 g/dL (3.5-5.0); ALT/SGPT 27 U/L (21-72); AST/SGOT 21 U/L (17-59); BLOOD UREA NITROGEN 24 mg/dL (9-20); CALCIUM 8.3 mg/dl (8.6-10.4); GFR AFRICAN-AMERICAN > 60; GFR NON-AFRICAN AMERICAN > 60
[2017-06-07] MEDS: Pantoprazole 40 mg EC Tab PO SCH (10:16)
[2017-06-07] MEDS: PYRIDOSTIGMINE 60 MG TAB PO SCH ×3 (10:18→17:30)
[2017-06-07] MEDS: MYRBETRIQ 50 MG TAB PO SCH (10:18)
[2017-06-07] MEDS: VESICARE 5 MG PO SCH (10:20)
[2017-06-07] MEDS: Enoxaparin 40 mg Syringe SC SCH (10:25)
--- NOTE | 2017-06-07 19:34 | CP.PCM.PN ---
Subjective - Date & Time of Evaluation Date of Evaluation: 06/07/17 Time of Evaluation: 10:10 - Subjective Subjective: clinically same Objective - Vital Signs/Intake and Output Vital Signs (last 24 hours): Temp Pulse Resp BP Pulse Ox 98 F 77 20 138/86 97 06/07/17 17:04 06/07/17 16:00 06/07/17 16:00 06/07/17 16:00 06/07/17 16:00 Intake and Output: 06/07/17 06/08/17 18:59 06:59 Intake Total 480 Balance 480 - Medications Medications: Current Medications Acetaminophen (Tylenol 325mg Tab) 650 mg PO Q6 PRN PRN Reason: Pain, moderate (4-7) Acetaminophen (Tylenol 325mg Tab) 650 mg PO Q6 PRN PRN Reason: Fever >100.4 F Citalopram Hydrobromide (Celexa) 10 mg PO DAILY [facility] Last Admin: 06/07/17 10:16 Dose: 10 mg Donepezil HCl (Aricept) 10 mg PO HS [facility] Last Admin: 06/06/17 23:13 Dose: 10 mg Enoxaparin Sodium (Lovenox) 40 mg SC DAILY [facility] Last Admin: 06/07/17 10:25 Dose: 40 mg Finasteride (Proscar) 5 mg PO DAILY [facility] Last Admin: 06/07/17 10:16 Dose: 5 mg Fludrocortisone Acetate (Florinef) 0.1 mg PO DAILY [facility] Last Admin: 06/07/17 10:16 Dose: 0.1 mg Home Med (Patient's Own Medication) 1 tab PO DAILY [facility] Last Admin: 06/07/17 10:20 Dose: 1 tab Home Med (Patient's Own Medication) 1 tab PO TID [facility] Last Admin: 06/07/17 17:30 Dose: 1 tab Home Med (Patient's Own Medication) 1 tab PO DAILY [facility] Last Admin: 06/07/17 10:18 Dose: 1 tab Home Med (Patient's Own Medication) 1 tab PO 0800,1200,1700 [facility] Last Admin: 06/07/17 17:30 Dose: 1 tab Memantine (Namenda) 10 mg PO BID [facility] Last Admin: 06/07/17 17:29 Dose: 10 mg Pantoprazole Sodium (Protonix Ec Tab) 40 mg PO DAILY [facility] Last Admin: 06/07/17 10:16 Dose: 40 mg - Labs Labs: 06/07/17 07:58 06/07/17 07:58 PT 12.0 SECONDS (9.7-12.2) 06/03/17 19:46 INR 1.1 06/03/17 19:46 APTT 34 SECONDS (21-34) 06/03/17 19:46
[2017-06-08] MEDS: MIDODRINE 5 MG PO SCH ×3 (08:32→18:23)
[2017-06-08] MEDS: Pantoprazole 40 mg EC Tab PO SCH (10:00)
[2017-06-08] MEDS: Enoxaparin 40 mg Syringe SC SCH (10:00)
[2017-06-08] MEDS: MYRBETRIQ 50 MG TAB PO SCH (10:01)
[2017-06-08] MEDS: PYRIDOSTIGMINE 60 MG TAB PO SCH ×3 (10:01→18:23)
[2017-06-08] MEDS: VESICARE 5 MG PO SCH (10:02)
--- NOTE | 2017-06-08 14:47 | CP.PCM.CON ---
History of Present Illness - History of Present Illness History of Present Illness: 72-year-old male presents to the ED for evaluation of right shoulder pain which began after he sustained a fall [employer]. Patient states he accidentally tripped over his foot and fell onto his right side. Patient notes he hit the right side of his head, but denies LOC. pt currently awake but confused CT Head reportedly neg Ortho on board for fx prox humerus CT chest shows infiltrates - Medical History PMH: Alzheimer's Disease, Anemia, COPD, Dementia, Fractures (ribs) Denies: Chronic Kidney Disease Review of Systems - Review of Systems Systems not reviewed;Unavailable: Altered Mental Status All systems: reviewed and no additional remarkable complaints except - Constitutional Constitutional: As Per HPI - EENT Eyes: absent: As Per HPI, Blind Spots, Blurred Vision, Change in Vision, Decreased Night Vision, Diplopia, Discharge, Dry Eye, Exophthalmos, Floaters, Irritation, Itchy Eyes, Loss of Peripheral Vision, Pain, Photophobia, Requires Corrective Lenses, Sees Flashes, Spots in Vision, Tunnel Vision, Other Visual Disturbances, Loss of Vision, Other Ears: absent: As Per HPI, Decreased Hearing, Ear Discharge, Ear Pain, Tinnitus, Abnormal Hearing, Disequilibrium, Dizziness, Other Nose/Mouth/Throat: absent: As Per HPI, Epistaxis, Nasal Congestion, Nasal Discharge, Nasal Obstruction, Nasal Trauma, Nose Pain, Post Nasal Drip, Sinus Pain, Sinus Pressure, Bleeding Gums, Change in Voice, Dental Pain, Dry Mouth, Dysphagia, Halitosis, Hoarsness, Lip Swelling, Mouth Lesions, Mouth Pain, Odynophagia, Sore Throat, Throat Swelling, Tongue Swelling, Facial Pain, Neck Pain, Neck Mass, Other - Cardiovascular Cardiovascular: absent: As Per HPI, Acrocyanosis, Chest Pain, Chest Pain at Rest , Chest Pain with Activity, Claudication, Diaphoresis, Dyspnea, Dyspnea on Exertion, Edema, Irregular Heart Rhythm, Pain Radiating to Arm/Neck/Jaw, Leg Edema, Leg Ulcers, Lightheadedness, Orthopnea, Palpitations, Paroxysmal Nocturnal Dyspnea, Pedal Edema, Radiating Pain, Rapid Heart Rate, Slow Heart Rate, Syncope, Other - Respiratory Respiratory: As Per HPI - Gastrointestinal Gastrointestinal: absent: As Per HPI, Abdominal Pain, Belching, Bloating, Change in Bowel Habits, Change in Stool Character, Coffee Ground Emesis, Constipation, Cramping, Diarrhea, Dyspepsia, Dysphagia, Early Satiety, Excessive Flatus, Fecal Incontinence, Heartburn, Hematemesis, Hematochezia, Loose Stools, Melena, Nausea, Odynophagia, Temesmus, Vomiting, Other - Genitourinary Genitourinary: absent: As Per HPI, Change in Urinary Stream, Difficulty Urinating, Dysuria, Flank Pain, Hematuria, Pyuria, Nocturia, Urinary Incontinence, Urinary Frequency, Urinary Hesitance, Urinary Urgency, Voiding Freq/Small Amts, Freq UTI, Hx Renal/Bladder Calculi, Hx /Renal Surgery, Bladder Distension, Other - Musculoskeletal Musculoskeletal: As Per HPI - Integumentary Integumentary: absent: As Per HPI, Acne, Alopecia, Bleeding Lesions, Change in Hair, Change in Nails, Change in Pigmentation, Changing Lesions, Dry Skin, Erythema, Furuncle, Hirsutism, Lesions, New Lesions, Non-Healing Lesions, Photosensitivity, Pruritus, Rash, Skin Pain, Skin Ulcer, Sores, Striae, Swelling , Unusual Bruising, Wounds, Jaundice, Other - Neurological Neurological: As Per HPI - Psychiatric Psychiatric: absent: As Per HPI, Abnormal Sleep Pattern, Anhedonia, Anxiety, Auditory Hallucinations, Behavioral Changes, Change in Appetite, Change in Libido, Confusion, Depression, Difficulty Concentrating, Hallucinations, Homicidal Ideation, Hopelessness, Irritability, Memory Loss, Mood Swings, Panic Attacks, Paranoia, Suicidal Ideation, Visual Hallucinations, Tactile Hallucinations, Other - Endocrine Endocrine: absent: As Per HPI, Change in Body Appearance, Change in Libido, Cold Intolorance, Deepening of Voice, Excessive Sweating, Fatigue, Flushing, Heat Intolorance, Increase in Ring/Shoe/Hat Size, Palpitations, Polydipsia, Polyphagia, Polyuria, Other - Hematologic/Lymphatic Hematologic: absent: As Per HPI, Easy Bleeding, Easy Bruising, Lymphadenopathy, Other Past Patient History - Infectious Disease Hx of Infectious Diseases: None - Tetanus Immunizations Tetanus Immunization: Unknown - Past Medical History & Family History Past Medical History?: Yes - Past Social History Smoking Status: Former Smoker - CARDIAC Hx Hypotension: Yes (orthostatic) - PULMONARY Hx Chronic Obstructive Pulmonary Disease (COPD): Yes - NEUROLOGICAL Hx Alzheimer's Disease: Yes Hx Dementia: Yes - HEENT Hx Cataracts: Yes - RENAL Hx Chronic Kidney Disease: No - ENDOCRINE/METABOLIC Hx Endocrine Disorders: No - HEMATOLOGICAL/ONCOLOGICAL Hx Anemia: Yes - INTEGUMENTARY Hx Dermatological Problems: No - MUSCULOSKELETAL/RHEUMATOLOGICAL Hx Falls: Yes (07/01/17) Hx Fractures: Yes (ribs) - GASTROINTESTINAL Hx Gastrointestinal Disorders: No - GENITOURINARY/GYNECOLOGICAL Hx Prostate Problems: Yes Hx Urinary Tract Infection: Yes Other/Comment: frequent urine infections - PSYCHIATRIC Hx Substance Use: No - SURGICAL HISTORY Hx Appendectomy: Yes - ANESTHESIA Hx Anesthesia: Yes Hx Anesthesia Reactions: No Hx Malignant Hyperthermia: No Has any member of the family had a problem w/ anesthesia?: No Meds Home Medications: Home Medication List Medication Instructions Recorded Confirmed Type Acetaminophen [Tylenol 325mg tab] 650 mg PO Q6 PRN tab 06/06/17 Rx Finasteride [Proscar] 5 mg PO DAILY tab 06/06/17 Rx Solifenacin Succinate [Vesicare] 1 tab PO DAILY 06/06/17 Rx Allergies/Adverse Reactions: Allergies Allergy/AdvReac Type Severity Reaction Status Date / Time morphine Allergy ANAPHYLAXIS Verified 06/03/17 16:58 - Medications Medications: Current Medications Acetaminophen (Tylenol 325mg Tab) 650 mg PO Q6 PRN PRN Reason: Pain, moderate (4-7) Acetaminophen (Tylenol 325mg Tab) 650 mg PO Q6 PRN PRN Reason: Fever >100.4 F Citalopram Hydrobromide (Celexa) 10 mg PO DAILY [facility] Last Admin: 06/08/17 10:03 Dose: 10 mg Donepezil HCl (Aricept) 10 mg PO HS [facility] Last Admin: 06/07/17 21:01 Dose: 10 mg Enoxaparin Sodium (Lovenox) 40 mg SC DAILY [facility] Last Admin: 06/08/17 10:00 Dose: 40 mg Finasteride (Proscar) 5 mg PO DAILY [facility] Last Admin: 06/08/17 10:00 Dose: 5 mg Fludrocortisone Acetate (Florinef) 0.1 mg PO DAILY [facility] Last Admin: 06/08/17 10:03 Dose: 0.1 mg Home Med (Patient's Own Medication) 1 tab PO DAILY [facility] Last Admin: 06/08/17 10:02 Dose: 1 tab Home Med (Patient's Own Medication) 1 tab PO TID [facility] Last Admin: 06/08/17 13:09 Dose: 1 tab Home Med (Patient's Own Medication) 1 tab PO DAILY [facility] Last Admin: 06/08/17 10:01 Dose: 1 tab Home Med (Patient's Own Medication) 1 tab PO 0800,1200,1700 [facility] Last Admin: 06/08/17 12:14 Dose: 1 tab Memantine (Namenda) 10 mg PO BID [facility] Last Admin: 06/08/17 10:00 Dose: 10 mg Pantoprazole Sodium (Protonix Ec Tab) 40 mg PO DAILY [facility] Last Admin: 06/08/17 10:00 Dose: 40 mg Physical Exam - Constitutional Appears: No Acute Distress, Confused, Chronically Ill - Head Exam Head Exam: NORMOCEPHALIC - Eye Exam Eye Exam: absent: Scleral icterus - ENT Exam ENT Exam: Mucous Membranes Dry, Normal External Ear Exam - Neck Exam Neck exam: Negative for: Lymphadenopathy - Respiratory Exam Respiratory Exam: Decreased Breath Sounds, Rhonchi - Cardiovascular Exam Cardiovascular Exam: REGULAR RHYTHM, +S1, +S2 - GI/Abdominal Exam GI & Abdominal Exam: Diminished Bowel Sounds, Soft. absent: Tenderness - Rectal Exam Rectal Exam: Deferred - Exam Exam: NORMAL INSPECTION - Extremities Exam Extremities exam: Positive for: pedal pulses present. Negative for: calf tenderness, pedal edema, tenderness - Back Exam Back exam: absent: CVA tenderness (L), CVA tenderness (R), paraspinal tenderness - Neurological Exam Neurological exam: Alert, Altered, CN II-XII Intact - Psychiatric Exam Psychiatric exam: Depressed - Skin Skin Exam: Dry Results - Vital Signs Recent Vital Signs: Last Vital Signs Temp 98 F 06/08/17 07:45 Pulse 76 06/08/17 07:45 Resp 18 06/08/17 07:45 BP 143/87 06/08/17 07:45 Pulse Ox 97 06/08/17 07:45 - Labs Result Diagrams: 06/07/17 07:58 06/07/17 07:58 Assessment & Plan (1) Closed fracture of right proximal humerus Status: Acute (2) Dementia Status: Acute (3) Hand fracture Status: Acute (4) Rib contusion Status: Acute (5) Sepsis Status: Acute - Assessment and Plan (Free Text) Assessment: recc pulm eval for infiltrates await cultures cont iv antibiotics
--- NOTE | 2017-06-08 16:04 | CP.PCM.PN ---
Subjective - Date & Time of Evaluation Date of Evaluation: 06/08/17 Time of Evaluation: 10:50 - Subjective Subjective: clinically same Objective - Vital Signs/Intake and Output Vital Signs (last 24 hours): Temp Pulse Resp BP Pulse Ox 98 F 76 18 143/87 97 06/08/17 07:45 06/08/17 07:45 06/08/17 07:45 06/08/17 07:45 06/08/17 07:45 Intake and Output: 06/08/17 06/08/17 06:59 18:59 Intake Total 320 480 Output Total 200 Balance 120 480 - Medications Medications: Current Medications Acetaminophen (Tylenol 325mg Tab) 650 mg PO Q6 PRN PRN Reason: Pain, moderate (4-7) Acetaminophen (Tylenol 325mg Tab) 650 mg PO Q6 PRN PRN Reason: Fever >100.4 F Citalopram Hydrobromide (Celexa) 10 mg PO DAILY [facility] Last Admin: 06/08/17 10:03 Dose: 10 mg Donepezil HCl (Aricept) 10 mg PO HS [facility] Last Admin: 06/07/17 21:01 Dose: 10 mg Enoxaparin Sodium (Lovenox) 40 mg SC DAILY [facility] Last Admin: 06/08/17 10:00 Dose: 40 mg Finasteride (Proscar) 5 mg PO DAILY [facility] Last Admin: 06/08/17 10:00 Dose: 5 mg Fludrocortisone Acetate (Florinef) 0.1 mg PO DAILY [facility] Last Admin: 06/08/17 10:03 Dose: 0.1 mg Home Med (Patient's Own Medication) 1 tab PO DAILY [facility] Last Admin: 06/08/17 10:02 Dose: 1 tab Home Med (Patient's Own Medication) 1 tab PO TID [facility] Last Admin: 06/08/17 13:09 Dose: 1 tab Home Med (Patient's Own Medication) 1 tab PO DAILY [facility] Last Admin: 06/08/17 10:01 Dose: 1 tab Home Med (Patient's Own Medication) 1 tab PO 0800,1200,1700 [facility] Last Admin: 06/08/17 12:14 Dose: 1 tab Ceftriaxone Sodium 1 gm/ (Sodium Chloride) 100 mls @ 100 mls/hr IVPB Q12H [facility] Memantine (Namenda) 10 mg PO BID [facility] Last Admin: 06/08/17 10:00 Dose: 10 mg Pantoprazole Sodium (Protonix Ec Tab) 40 mg PO DAILY [facility] Last Admin: 06/08/17 10:00 Dose: 40 mg - Labs Labs: 06/07/17 07:58 06/07/17 07:58 PT 12.0 SECONDS (9.7-12.2) 06/03/17 19:46 INR 1.1 06/03/17 19:46 APTT 34 SECONDS (21-34) 06/03/17 19:46 - Constitutional Appears: Well - Head Exam Head Exam: ATRAUMATIC, NORMAL INSPECTION, NORMOCEPHALIC - Eye Exam Eye Exam: EOMI, Normal appearance, PERRL Pupil Exam: NORMAL ACCOMODATION, PERRL - ENT Exam ENT Exam: Mucous Membranes Moist, Normal Exam - Neck Exam Neck Exam: Full ROM, Normal Inspection. absent: Lymphadenopathy - Respiratory Exam Respiratory Exam: Decreased Breath Sounds - Cardiovascular Exam Cardiovascular Exam: REGULAR RHYTHM, +S1, +S2 - GI/Abdominal Exam GI & Abdominal Exam: Soft, Diminished Bowel Sounds - Rectal Exam Rectal Exam: Deferred Assessment and Plan - Assessment and Plan (Free Text) Plan: Patient is advanced demented [place] discussed with the who this is the [facility] sent and Feeding and encouraged to Continue same medication Follow-up with Dr. Parson Continue IV Rocephin GI prophylaxis DVT prophylaxis As ordered
[2017-06-09] MEDS: MIDODRINE 5 MG PO SCH ×2 (08:10→12:22)
[2017-06-09] MEDS: Pantoprazole 40 mg EC Tab PO SCH (11:14)
[2017-06-09] MEDS: Enoxaparin 40 mg Syringe SC SCH (11:14)
[2017-06-09] MEDS: MYRBETRIQ 50 MG TAB PO SCH (11:15)
[2017-06-09] MEDS: VESICARE 5 MG PO SCH (11:17)
[2017-06-09] MEDS: PYRIDOSTIGMINE 60 MG TAB PO SCH ×2 (11:18→13:32)
--- NOTE | 2017-06-09 12:46 | CP.PCM.PN ---
Subjective - Date & Time of Evaluation Date of Evaluation: 06/09/17 Time of Evaluation: 07:00 - Subjective Subjective: remains obtunded consider Neuro eval / MRI await fna; cultures Objective - Vital Signs/Intake and Output Vital Signs (last 24 hours): Temp Pulse Resp BP Pulse Ox 98.8 F 86 20 143/81 96 06/08/17 23:00 06/08/17 23:00 06/08/17 23:00 06/08/17 23:00 06/08/17 23:00 Intake and Output: 06/09/17 06/09/17 06:59 18:59 Intake Total 200 Balance 200 - Medications Medications: Current Medications Acetaminophen (Tylenol 325mg Tab) 650 mg PO Q6 PRN PRN Reason: Pain, moderate (4-7) Acetaminophen (Tylenol 325mg Tab) 650 mg PO Q6 PRN PRN Reason: Fever >100.4 F Citalopram Hydrobromide (Celexa) 10 mg PO DAILY [facility] Last Admin: 06/09/17 11:15 Dose: 10 mg Donepezil HCl (Aricept) 10 mg PO HS [facility] Last Admin: 06/08/17 21:46 Dose: 10 mg Enoxaparin Sodium (Lovenox) 40 mg SC DAILY [facility] Last Admin: 06/09/17 11:14 Dose: 40 mg Finasteride (Proscar) 5 mg PO DAILY [facility] Last Admin: 06/09/17 11:14 Dose: 5 mg Fludrocortisone Acetate (Florinef) 0.1 mg PO DAILY [facility] Last Admin: 06/09/17 11:15 Dose: 0.1 mg Home Med (Patient's Own Medication) 1 tab PO DAILY [facility] Last Admin: 06/09/17 11:17 Dose: 1 tab Home Med (Patient's Own Medication) 1 tab PO TID [facility] Last Admin: 06/09/17 11:18 Dose: 1 tab Home Med (Patient's Own Medication) 1 tab PO DAILY [facility] Last Admin: 06/09/17 11:15 Dose: 1 tab Home Med (Patient's Own Medication) 1 tab PO 0800,1200,1700 [facility] Last Admin: 06/09/17 12:22 Dose: 1 tab Ceftriaxone Sodium 1 gm/ (Sodium Chloride) 100 mls @ 100 mls/hr IVPB Q12H [facility] Last Admin: 06/09/17 04:14 Dose: 100 mls/hr Memantine (Namenda) 10 mg PO BID [facility] Last Admin: 06/09/17 11:14 Dose: 10 mg Pantoprazole Sodium (Protonix Ec Tab) 40 mg PO DAILY [facility] Last Admin: 06/09/17 11:14 Dose: 40 mg - Labs Labs: 06/07/17 07:58 06/07/17 07:58 PT 12.0 SECONDS (9.7-12.2) 06/03/17 19:46 INR 1.1 06/03/17 19:46 APTT 34 SECONDS (21-34) 06/03/17 19:46 - Constitutional Appears: Confused, Chronically Ill - Head Exam Head Exam: NORMOCEPHALIC - Eye Exam Eye Exam: PERRL. absent: Scleral icterus - ENT Exam ENT Exam: Mucous Membranes Dry - Neck Exam Neck Exam: absent: Lymphadenopathy - Respiratory Exam Respiratory Exam: Decreased Breath Sounds - Cardiovascular Exam Cardiovascular Exam: REGULAR RHYTHM - GI/Abdominal Exam GI & Abdominal Exam: Distended, Soft - Rectal Exam Rectal Exam: Deferred - Exam Exam: NORMAL INSPECTION - Extremities Exam Extremities Exam: absent: Pedal Edema - Back Exam Back Exam: absent: CVA tenderness (L), CVA tenderness (R) - Neurological Exam Neurological Exam: Altered Assessment and Plan (1) Closed fracture of right proximal humerus Status: Acute (2) Dementia Status: Acute (3) Hand fracture Status: Acute (4) Rib contusion Status: Acute (5) Sepsis Status: Acute
[2017-06-09 13:19] VITALS: BP 146/80; PULSE 76; RESP 18; TEMP 98.5
[2017-06-09 18:03] VITALS: O2SAT 96
--- NOTE | 2017-06-09 23:10 | CP.PCM.PN ---
Subjective - Date & Time of Evaluation Date of Evaluation: 06/09/17 Objective - Vital Signs/Intake and Output Vital Signs (last 24 hours): Temp Pulse Resp BP Pulse Ox 98.5 F 76 18 146/80 96 06/09/17 07:00 06/09/17 07:00 06/09/17 07:00 06/09/17 07:00 06/09/17 18:18 - Labs Labs: 06/07/17 07:58 06/07/17 07:58 PT 12.0 SECONDS (9.7-12.2) 06/03/17 19:46 INR 1.1 06/03/17 19:46 APTT 34 SECONDS (21-34) 06/03/17 19:46
[2017-06-11 00:46] LABS: ALBUMIN (PEP) 3.1 g/dL (3.8-4.8); ALPHA-1-GLOBULIN (PEP) 0.5 g/dL (0.2-0.3)
== END 2017-06-09 16:04 | DRG 563 ==
LOC: C.ER 16:36 → C.9E 18:50 → C.6T 06-04 16:28
PROVIDERS: ADMIT Internal Medicine Nephrology; ATTEND Internal Medicine Nephrology
DX: S42.201A Unspecified fracture of upper end of right humerus, initial encounter for closed fracture (principal); G30.9 Alzheimer's disease, unspecified; F02.80 Dementia in other diseases classified elsewhere, unspecified severity, without behavioral disturbance, psychotic disturbance, mood disturbance, and anxiety; N39.0 Urinary tract infection, site not specified; S20.219A Contusion of unspecified front wall of thorax, initial encounter; W01.0XXA Fall on same level from slipping, tripping and stumbling without subsequent striking against object, initial encounter; J44.9 Chronic obstructive pulmonary disease, unspecified; Z87.440 Personal history of urinary (tract) infections; Z87.891 Personal history of nicotine dependence; Z90.49 Acquired absence of other specified parts of digestive tract; Z87.81 Personal history of (healed) traumatic fracture; Y92.9 Unspecified place or not applicable